=== PATIENT | male | born 1965 | race Caucasian/White ===

== ENCOUNTER 2018-07-08 15:44 | Emergency (ER) | payer SELFPAY ==
[2018-07-08] MEDS: KETOROLAC 30 MG INJ IM (18:57)
[2018-07-08] MEDS: HYDROCODONE/APAP (10/325) TAB PO (18:57)
== END 2018-07-08 19:07 | disposition home or self-care (01) ==
LOC: FTE 15:44
DX: M54.5 Low back pain (principal)
CPT/HCPCS: 96372; 99284-25